=== PATIENT | female | born 1990 | race Two or more races ===

== ENCOUNTER 2018-06-08 04:38 | Emergency (ER) | payer MEDICAID ==
[~2018-06-08] VITALS: Ht 165.1 cm; Wt 61.2 kg
--- NOTE | 2018-06-08 05:27 | NUR ---
Dr. Hong at bedside for MSE.
[2018-06-08] MEDS ORDERED: ALBUTEROL SULFATE 2.5 MG/3 ML NEBU ONE (05:39)
--- NOTE | 2018-06-08 05:42 | NUR ---
Respiratory at bedside.
[2018-06-08] MEDS ORDERED: ALBUTEROL SULFATE 2.5 MG/3 ML NEBU NEB ONE (05:45)
--- NOTE | 2018-06-08 05:49 | NUR ---
Xray at bedside.
[2018-06-08 05:52] LABS: BASOPHILS # (AUTO) 0.1 K/uL (0.0-8.0); BASOPHILS % (AUTO) 0.9 % (0.0-2.0); EOSINOPHILS # (AUTO) 0.5 K/uL (0.0-0.7); HEMATOCRIT 41.6 % (31.2-41.9); HEMOGLOBIN 14.3 g/dL (10.9-14.3); LYMPHOCYTES # (AUTO) 2.5 K/uL (20.0-40.0); LYMPHOCYTES % (AUTO) 28.7 % (20.5-51.5); MEAN CORPUSCULAR HEMOGLOBIN 31.2 uug (24.7-32.8); MEAN CORPUSCULAR HGB CONC 34 g/dL (32.3-35.6); MEAN CORPUSCULAR VOLUME 91.1 fL (75.5-95.3); MONOCYTES # (AUTO) 0.7 K/uL (2.0-10.0); MONOCYTES % (AUTO) 8.4 % (0.0-11.0); NEUTROPHILS # (AUTO) 4.9 K/uL (1.8-8.9); PLATELET COUNT (AUTO) 313 K/uL (179-408); RED BLOOD CELL COUNT(AUTO) 4.57 MIL/uL (3.63-4.92); WHITE BLOOD COUNT (AUTO) 8.7 K/uL (3.8-11.8)
[2018-06-08 06:04] LABS: CREATININE 0.9 mg/dL (0.6-1.3); POTASSIUM 3.7 mmol/L (3.5-5.1)
[2018-06-08 06:17] LABS: BILIRUBIN,DIRECT 0.1 mg/dL (0.0-0.2); BILIRUBIN,TOTAL 0.3 mg/dL (0.2-1.0); TOTAL PROTEIN, SERUM 7.9 g/dL (6.4-8.2)
[2018-06-08 06:21] LABS: *URINE HCG, QUAL NEGATIVE (NEGATIVE)
--- NOTE | 2018-06-08 06:40 | NUR ---
Patient discharged to home in stable conditon. Written and verbal after care instructions given. Patient verbalizes understanding of instructions. Pt ambulated out of ER with steady gait, no acute signs of distress, VSS, all belongings taken.
[2018-06-08 06:41] VITALS: BP 133/89
== END 2018-06-08 06:42 | disposition home or self-care (01) ==
LOC: ER 04:47
DX: R06.00 Dyspnea, unspecified (principal)
CPT/HCPCS: 36415; 70030-TC; 71045; 84703; 85025; 93005; A4663

== ENCOUNTER 2018-06-25 02:01 | Emergency (ER) | payer MEDICAID ==
[~2018-06-25] VITALS: Ht 165.1 cm; Wt 63.5 kg
--- NOTE | 2018-06-25 02:40 | NUR ---
Seen and evaluated by .
[2018-06-25] MEDS ORDERED: predniSONE 20 MG TABLET ONE (02:41)
[2018-06-25] MEDS ORDERED: ALBUTEROL SULFATE 2.5 MG/3 ML NEBU NEB ONE (02:45)
[2018-06-25] MEDS ORDERED: predniSONE 20 MG TABLET PO ONE (02:45)
[2018-06-25] MEDS ORDERED: IPRATROPIUM BROMIDE 0.5 MG/2.5 ML NEBU NEB ONE (02:45)
[2018-06-25] MEDS ORDERED: ALBUTEROL SULFATE 2.5 MG/3 ML NEBU ONE (02:45)
[2018-06-25] MEDS ORDERED: IPRATROPIUM BROMIDE 0.5 MG/2.5 ML NEBU ONE (02:45)
--- NOTE | 2018-06-25 02:46 | NUR ---
Medication administered. Patient teaching provided regarding medication.
[2018-06-25 04:41] VITALS: BP 110/54
== END 2018-06-25 04:37 | disposition home or self-care (01) ==
LOC: ER 02:03
DX: J40 Bronchitis, not specified as acute or chronic (principal); F17.200 Nicotine dependence, unspecified, uncomplicated; Z91.013 Allergy to seafood
CPT/HCPCS: 71045; 94644; 99285; J7512; A4663; J3590